=== PATIENT | male | born 1985 | race Caucasian/White ===

== ENCOUNTER → 2019-05-15 | Outpatient (CLI) | payer MEDICAID ==
[2019-05-15 23:31] LABS: Hepatitis A Antibody IgM Non-Reactive (Non-Reactive); Hepatitis B Core IgM Non-Reactive (Non-Reactive); Hepatitis B Surface Antigen Non-Reactive (Non-Reactive); Hepatitis C IgG Antibody Non-Reactive (Non-Reactive)
== END | disposition home or self-care (01) ==
LOC: LABWHC1 09:07
PROVIDERS: ATTEND Obstetrics & Gynecology Reproductive Endocrinology
DX: A64 Unspecified sexually transmitted disease (principal)
CPT/HCPCS: 36415; 80074; 86644; 86645; 86780; 87390

== ENCOUNTER 2020-08-31 18:29 | Emergency (ER) | payer MEDICAID, OTHER ==
[2020-08-31 19:14] VITALS: BP 138/75; PULSE 100; RESP 18; TEMP 99
[2020-08-31] MEDS ORDERED: LIDOCAINE 1% INJ 10MG/ML (20 ML MDV) SQ ONE (20:15)
--- NOTE | 2020-08-31 20:17 | ED ---
General Adult HPI - General Chief complaint: Extremity Problem,Nontraumatic Stated complaint: Toe infection Time Seen by Provider: 08/31/20 19:50 Source: patient, RN notes reviewed Mode of arrival: ambulatory Limitations: no limitations - History of Present Illness Initial comments: Patient is a pleasant 35-year-old male presenting to the emergency Department with complaints of concern for right toe swelling. Onset of symptoms was a few days ago. Patient was started on antibiotics less than 2 days ago, Bactrim. Patient has had mild increase in swelling. There is some mild redness. There is discomfort. Discomfort increases with touch. Discomfort is otherwise moderate. No fever. No history of diabetes. No history of similar symptoms previously. - Related Data Previous Rx's Medication Instructions Recorded Cephalexin [Keflex] 500 mg PO QID #40 cap 08/31/20 Allergies Allergy/AdvReac Type Severity Reaction Status Date / Time No Known Allergies Allergy Verified 08/31/20 19:11 Review of Systems ROS Statement: Those systems with pertinent positive or pertinent negative responses have been documented in the HPI. ROS Other: All systems not noted in ROS Statement are negative. Constitutional: Denies: fever Eyes: Denies: eye pain ENT: Denies: ear pain Respiratory: Denies: dyspnea Cardiovascular: Denies: chest pain Endocrine: Denies: fatigue Gastrointestinal: Denies: abdominal pain Genitourinary: Denies: dysuria Musculoskeletal: Denies: back pain Skin: Reports: as per HPI, rash Neurological: Denies: weakness Past Medical History Past Medical History: No Reported History History of Any Multi-Drug Resistant Organisms: None Reported Past Surgical History: No Surgical Hx Reported Past Psychological History: No Psychological Hx Reported Smoking Status: Never smoker Past Alcohol Use History: Occasional Past Drug Use History: None Reported General Exam Limitations: no limitations General appearance: alert, in no apparent distress Head exam: Present: normocephalic Eye exam: Present: normal appearance Neck exam: Present: normal inspection Respiratory exam: Present: normal lung sounds bilaterally Cardiovascular Exam: Present: regular rate, normal rhythm Extremities exam: Present: other (Right great toe with approximately 2 x 3 area of swelling with mild erythema.) Neurological exam: Present: alert Psychiatric exam: Present: normal affect, normal mood Skin exam: Present: erythema Course Vital Signs 08/31/20 19:11 Temperature 99.0 F Pulse Rate 100 Respiratory 18 Rate Blood Pressure 138/75 O2 Sat by Pulse 98 Oximetry Procedures - [place] Protocol (Time Out) Procedure Performed:: i and d Performing Provider: Spike Philip Timeout Date: 08/31/20 Timeout Time: 18:15 Patient Identification (2 identifiers required): Chart, Verbal Patient/Legal Format Proofreader has Confirmed: Identity, Site Site Marked: Yes Site Verified With Patient/Guardian: Yes Final Confirmation: Procedure - Incision & Drainage Consent Obtained: verbal consent Indication: abcess Site: foot Anesthetic Used: lidocaine 1% I&D Cleaning Method: Betadine Scalpel Used: #11 Needle Aspiration Performed?: Yes (purlent, converted to i and d) I&D Drainage Obtained: Pus Culture Obtained?: Yes Patient Tolerated Procedure: well, no complications Disposition Clinical Impression: Abscess of toe of right foot Disposition: HOME SELF-CARE Condition: Stable Instructions (If sedation given, give patient instructions): Abscess (ED) Additional Instructions: Continue Bactrim. Prescription for Keflex has been added. Please follow-up with primary care physician in the next day or 2 for recheck. Consider orthopedic or podiatric follow-up. Return for fever, increased pain, swelling, redness, worsening symptoms or other concerns. Prescriptions: Cephalexin [Keflex] 500 mg PO QID #40 cap Is patient prescribed a controlled substance at d/c from ED?: No Referrals: Yoni French DO [Doctor of Osteopathic Medicine] - 1-2 days Corona Kauffman MD [STAFF PHYSICIAN] - 1-2 days Time of Disposition: 20:33
== END 2020-08-31 20:46 | disposition home or self-care (01) ==
LOC: EC 18:29
DX: L02.611 Cutaneous abscess of right foot (principal)
CPT/HCPCS: 87070; 87205; 99283; 10060; J2001

== ENCOUNTER → 2022-03-25 | Outpatient (CLI) | payer OTHER ==
[2022-03-25 10:45] LABS: Basophils # (A) 0.06 X 10*3/uL (0.00-0.10); Basophils % (A) 0.7 %; Eosinophils % (A) 1.2 %; HCT 45.9 % (39.6-50.0); HGB 14.7 g/dL (13.0-17.0); Immature Grans, Automated 0.2 %; Lymphocytes # (A) 2.65 X 10*3/uL (0.90-5.00); Lymphocytes % (A) 30.6 %; MCH 29.5 pg (27.0-32.0); Mean Platelet Volume 10.9 fL (9.5-12.2); Monocytes # (A) 0.58 X 10*3/uL (0.20-1.00); Monocytes % (A) 6.7 %; NRBC Per 100 WBC 0 /100 WBCS (0.0-0.0); Neutrophils # (A) 5.24 X 10*3/uL (1.80-7.70); Neutrophils % (A) 60.6 %; Platelet Count 290 X 10*3/uL (140-440); RBC 4.99 X 10*6/uL (4.40-5.60); RDW 13.1 % (11.5-14.5); WBC 8.65 X 10*3/uL (4.50-10.00)
== END | disposition home or self-care (01) ==
LOC: LABWHC1 07:20
PROVIDERS: ATTEND Podiatrist Foot & Ankle Surgery
DX: M10.071 Idiopathic gout, right ankle and foot (principal)
CPT/HCPCS: 36415; 84550; 85025

== ENCOUNTER → 2024-03-26 | Outpatient (CLI) | payer OTHER ==
--- NOTE | 2024-04-03 09:11 | MR ---
EXAMINATION TYPE: MR elbow LT wo con DATE OF EXAM: 03/26/2024 7:53 PM COMPARISON: None. CLINICAL INDICATION: Male, 38 years old with history of M25.522 PAIN IN LEFT ELBOW; PHH, Left elbow p ain, hx injury. TECHNIQUE: Multiplanar multi-sequence imaging was performed of the elbow joint. No gadolinium given. FINDINGS: Ligaments and tendons: High PD signal with a thickened appearance of the the triceps tendo n near its insertion. Thickened appearance extends approximately 2.7 cm from its insertion. The later al ulnar collateral ligament, annular ligament, and lateral collateral ligament are intact. The comm on flexor tendon, biceps tendon, brachialis tendon, are within normal limits. Osseous structures: The remaining bone marrow signal intensity is unremarkable. A small amount of dionne int fluid is noted. IMPRESSION: Findings suggestive of triceps tendinitis with associated soft tissue edema. Partial tear not exclude d. [facility], , 04/03/2024 9:08 AM
== END | disposition home or self-care (01) ==
LOC: RADMRIMAIN 18:50
PROVIDERS: ATTEND Orthopaedic Surgery
DX: M25.522 Pain in left elbow (principal)